=== PATIENT | female | born 1945 | race Caucasian/White ===

== ENCOUNTER → 2022-06-10 | Outpatient (CLI) | payer MEDICARE, BC ==
--- NOTE | 2022-06-13 08:48 | MM ---
Reason for Exam: Screening (asymptomatic). Last mammogram was performed 6 year(s) and 3 month(s) ago. Patient History: Menarche at age 13. First Full-Term at age 22. Postmenopausal. Excisional Biopsy on the Right side. Sister had breast cancer at or over age 50. Sister had breast cancer at or over age 50. Risk Values: Cassidy 5 year model risk: 8.3%. NCI Lifetime model risk: 15.2%. Prior Study Comparison: 07/16/2008 Bilateral Screening Mammogram, [facility]. 04/29/2011 Bilateral Screening Mammogram, [facility]. 03/04/2016 Bilateral Screening Mammogram, [facility]. Tissue Density: The breast tissue is heterogeneously dense. This may lower the sensitivity of mammography. Findings: Analyzed By CAD. There is no suspicious group of microcalcifications or new suspicious mass in either breast. Benign calcification within the left breast. No significant change from prior exam. Overall Assessment: Benign, BI-RAD 2 Management: Screening Mammogram of both breasts in 1 year. A clinical breast exam by your physician is recommended on an annual basis and results should be correlated with mammographic findings. Electronically signed and approved by: Brien Guzman D.O.
== END | disposition home or self-care (01) ==
LOC: RADMAMWWP 09:39
PROVIDERS: ATTEND Internal Medicine
DX: Z12.31 Encounter for screening mammogram for malignant neoplasm of breast (principal)
CPT/HCPCS: 77063; 77067

== ENCOUNTER → 2022-09-21 | Outpatient (CLI) | payer MEDICARE, BC ==
--- NOTE | 2022-09-21 13:23 | US ---
EXAMINATION TYPE: US kidneys/renal and bladder DATE OF EXAM: 09/21/2022 COMPARISON: CT 03/04/2016. CLINICAL HISTORY: N32.81 OVERACTIVE BLADDER. Overactive bladder EXAM MEASUREMENTS: Right Kidney: 9.3 x 4.4 x 3.7 cm Left Kidney: 10.6 x 4.2 x 4.8 cm Right Kidney: No hydronephrosis or masses seen Left Kidney: Echogenic area seen upper pole 1.1 x 1.0 x 1.1 cm, previously this area measured up to 8 mm in 2016. Bladder: Anechoic uterocele visualized left side of bladder. Bilateral Jets seen: Yes There is no evidence for hydronephrosis at this point in time. No nephrolithiasis is seen. No otoniel s are identified. The urinary bladder is anechoic. Bilateral ureteral jets are seen. 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 This could be further evaluated with CT urogram. Hyperechoic lesion within the kidney most consistent with angiomyolipoma as seen on prior CT and may be mildly increased in size from prior
== END | disposition home or self-care (01) ==
LOC: RADUSWWP 12:01
PROVIDERS: ATTEND Internal Medicine
DX: N28.9 Disorder of kidney and ureter, unspecified (principal); N32.81 Overactive bladder
CPT/HCPCS: 76770

== ENCOUNTER → 2022-10-04 | Outpatient (CLI) | payer MEDICARE, BC ==
[2022-10-04 15:46] LABS: African American GFR (CKD) >90 (>60 ml/min/1.73 sqM); Blood Urea Nitrogen 23 mg/dL (7-17); Non-African American GFR(CKD) 88 (>60 ml/min/1.73 sqM)
--- NOTE | 2022-10-04 19:41 | CT ---
EXAMINATION TYPE: CT abdomen pelvis wo/w con CT DLP: 1021.2 mGycm, Automated exposure control for dose reduction was used. DATE OF EXAM: 10/04/2022 5:21 PM COMPARISON: CLINICAL INDICATION:Female, 77 years old with history of N28.9 DISORDER OF KIDNEY AND URETER, UNSPECI FIED; Disorder of kidney and ureter. TECHNIQUE: Axial CT of the abdomen and pelvis. Sagittal and coronal reformats were created on a [employer] workstation. Contrast used:100cc mL of Isovue 300 with IV Contrast, Oral contrast used: with Oral Contrast FINDINGS: LOWER CHEST: Unremarkable ABDOMEN LIVER: Unremarkable GALLBLADDER AND BILE DUCTS: Unremarkable. PANCREAS: Unremarkable. SPLEEN: Unremarkable. ADRENAL GLANDS: Unremarkable. KIDNEYS AND URETERS: No evidence of hydronephrosis or renal calculus. No suspicious masses visualized . Delayed imaging demonstrates no urothelial lesion within the visualized opacified calyces. Left fat -containing millimeter lesion most consistent with angiomyolipoma. PELVIS BLADDER: Unremarkable REPRODUCTIVE: Unremarkable. ABDOMEN & PELVIS STOMACH AND BOWEL: No evidence of bowel obstruction. Colonic diverticulosis PERITONEUM/RETROPERITONEUM: No evidence of pneumoperitoneum or free fluid. . VASCULATURE: No evidence of aortic aneurysm. MUSCULOSKELETAL: No acute osseous abnormalities LYMPH NODES: No gross evidence for lymphadenopathy. SOFT TISSUE/ABDOMINAL WALL: Unremarkable IMPRESSION: 1. Limited exam for ureterocele secondary to use of renal mass protocol and not CT urogram. 2. No evidence of obstructive uropathy or renal calculus. 3. Left 9 mm renal angiomyolipoma. 4. Colonic diverticulosis.
== END | disposition home or self-care (01) ==
LOC: RADCTMAIN 14:50
PROVIDERS: ATTEND Internal Medicine
DX: D17.71 Benign lipomatous neoplasm of kidney (principal); N28.9 Disorder of kidney and ureter, unspecified; K57.30 Diverticulosis of large intestine without perforation or abscess without bleeding
CPT/HCPCS: 82565; 84520; 74178; 36415; Q9967

== ENCOUNTER 2022-12-18 02:15 | Emergency (ER) | payer MEDICARE, BC ==
[2022-12-18] MEDS ORDERED: KETOROLAC 15 MG/ML 1 ML VIAL IVP STA (02:37)
[2022-12-18] MEDS ORDERED: SODIUM CHLORIDE 0.9% 1,000 ML IV ONE (02:37)
--- NOTE | 2022-12-18 02:47 | ED ---
General Adult HPI - General Chief complaint: Abdominal Pain Stated complaint: Vomitting, Cramping Post Op Time Seen by Provider: 12/18/22 02:30 Source: patient Mode of arrival: wheelchair Limitations: no limitations - History of Present Illness Initial comments: This is a 77-year-old female with a past medical history including hypothyroidism presented to the emergency department for left-sided abdominal pain and cramping. It was reported the patient had a retrograde pyelogram and cystoscopy on and stated that she had some minor cramping at that time but had been improving. The patient stated that she has had intermittent left-sided abdominal cramping episodes throughout the day today but only lasting a few minutes. The patient then stated that the episode that is currently happening is been going on for approximately one hour. The patient reported this cramping was on the left side of her abdomen and not radiating. The pa tient also reported some mild nausea and vomiting secondary to the pain. The patient denied any other acute pain or complaints and denied any abnormalities in her bowel movements. The patient denied any fevers, chills. - Related Data Home Medications Medication Instructions Recorded Confirmed Levothyroxine Sodium [Synthroid] 75 mcg PO DAILY 10/22/15 10/22/15 Allergies Allergy/AdvReac Type Severity Reaction Status Date / Time ciprofloxacin Allergy Unknown Verified 12/18/22 02:21 Review of Systems ROS Statement: Those systems with pertinent positive or pertinent negative responses have been documented in the HPI. ROS Other: All systems not noted in ROS Statement are negative. Past Medical History Past Medical History: Thyroid Disorder History of Any Multi-Drug Resistant Organisms: None Reported Past Surgical History: No Surgical Hx Reported Additional Past Surgical History / Comment(s): bladder Past Psychological History: No Psychological Hx Reported Smoking Status: Never smoker Past Alcohol Use History: None Reported Past Drug Use History: None Reported General Exam Limitations: no limitations General appearance: alert, in distress (Secondary to abdominal cramping) Head exam: Present: atraumatic, normocephalic, normal inspection Eye exam: Present: normal appearance, PERRL Pupils: Present: normal accommodation ENT exam: Present: normal exam, normal oropharynx, mucous membranes moist Neck exam: Present: normal inspection, full ROM Respiratory exam: Present: normal lung sounds bilaterally Cardiovascular Exam: Present: regular rate, normal rhythm, normal heart sounds GI/Abdominal exam: Present: soft, tenderness (TTP over the left lower abdominal quadrant), normal bowel sounds Extremities exam: Present: normal inspection, full ROM Back exam: Present: normal inspection, full ROM Neurological exam: Present: alert, oriented X3, CN II-XII intact Psychiatric exam: Present: normal affect, normal mood Skin exam: Present: warm, dry Course Vital Signs 12/18/22 12/18/22 12/18/22 02:22 02:49 04:43 Temperature 97.9 F Pulse Rate 69 57 L 53 L Respiratory 36 H 20 20 Rate Blood Pressure 171/95 175/80 145/78 O2 Sat by Pulse 96 97 97 Oximetry 12/18/22 06:16 Temperature 98.4 F Pulse Rate 63 Respiratory 16 Rate Blood Pressure 130/78 O2 Sat by Pulse 97 Oximetry Medical Decision Making - Medical Decision Making Was pt. sent in by a medical professional or institution (Dr. PA, VACUUM CLEANER ASSEMBLER, urgent care, hospital, or fdc...) When possible be specific @ -No Did you speak to anyone other than the patient for history (EMS, parent, family, police, friend...)? What history was obtained from this source @ -No Did you review nursing and triage notes (agree or disagree)? Why? @ -I reviewed and agree with nursing and triage notes Were old charts reviewed (outside hosp., previous admission, EMS record, old EKG, old radiological studies, urgent care reports/EKG's, fdc records)? Report findings @ -No old charts were reviewed Differential Diagnosis (chest pain, altered mental status, abdominal pain women, abdominal pain men, vaginal bleeding, weakness, fever, dyspnea, syncope, headache, dizziness, GI bleed, back pain, seizure, CVA, palpatations, mental health)? @ -Postop complication, kidney stone, UTI EKG interpreted by me (3pts min.). @ -None X-rays interpreted by me (1pt min.). @ -None done CT interpreted by me (1pt min.). @ -CT abdomen and pelvis with contrast was obtained and was interpreted by myself showing mild to moderate left-sided hydronephrosis with at least delayed excretion. There was present of hyperdense material near the UVJ that could flex blood clot versus mass versus neoplasm. It was recommended to correlate with findings during cystoscopy advised. U/S interpreted by me (1pt. min.). @ -None done What testing was considered but not performed or refused? (CT, X-rays, U/S, labs)? Why? @ -None What meds were considered but not given or refused? Why? @ -None Did you discuss the management of the patient with other professionals (professionals i.e. , PA, VACUUM CLEANER ASSEMBLER, lab, RT, psych nurse, social services director, ornamental iron worker helper, teacher, information officer, case specialist)? Give summary @ -Yes, Dr. Trevizo was contacted regarding the CT findings. He recommended no further surgical intervention or need for urology follow-up in the hospital but did recommend symptomatic control. He advised to follow-up in the office on Monday morning. Was smoking cessation discussed for >3mins.? @ -No Was critical care preformed (if so, how long)? @ -No Were there social determinants of health that impacted care today? How? (Ashley elessness, low income, unemployed, alcoholism, drug addiction, transportation, low edu. Level, literacy, decrease access to med. care, penitentiary, rehab)? @ -No Was there de-escalation of care discussed even if they declined (Discuss DNR or withdrawal of care, Hospice)? DNR status @ -No What co-morbidities impacted this encounter? (DM, HTN, Smoking, COPD, CAD, Cancer, CVA, ARF, Chemo, Hep., AIDS, mental health diagnosis, sleep apnea, morbid obesity)? @ -None Was patient admitted / discharged? Hospital course, mention meds given and route, prescriptions, significant lab abnormalities, going to OR and other pertinent info. @ -The patient was seen and evaluated emergency department. Physical exam, the patient was initially having significant pain and discomfort in the left flank and left lower abdomen and had nausea consistent with this. Vital signs admission were stable. Due to the findings, laboratory workup and imaging was obtained. Urinalysis did show blood and CT findings were above. The urologist on-call, Dr. Trevizo was contacted regarding the findings and was told of them. He recommended no further intervention by urology at this time but did state that the patient would need symptomatically control. The patient received 30 mg of Toradol and on reevaluation in the emergency department, had complete resolution of her pain. The patient was able to tolerate by mouth successfully in the emergency department was stable for discharge home. The patient had been previously prescribed Toradol after the procedure but had not taken them. The patient was advised to take Toradol as prescribed for continued cramping and to follow-up with her urologist, Dr. Alex, first thing in the morning on Monday. The patient was also advised report back to the emergency department if her pain became unbearable and unresponsive to the medications at home. The patient was agreeable to this and all her questions were answered. The patient was discharged home in stable condition. Undiagnosed new problem with uncertain prognosis? @ -No Drug Therapy requiring intensive monitoring for toxicity (Heparin, Nitro, Insulin, Cardizem)? @ -No Were any procedures done? @ -No Diagnosis/symptom? @ -Left flank pain, secondary to blood clot versus mass versus neoplasm at the left UVJ Acute, or Chronic, or Acute on Chronic? @ -Acute Uncomplicated (without systemic symptoms) or Complicated (systemic symptoms)? @ -Uncomplicated Side effects of treatment? @ -No Exacerbation, Progression, or Severe Exacerbation? @ -No Poses a threat to life or bodily function? How? (Chest pain, [place], [place], pneumonia, PE, COPD, DKA, ARF, appy, cholecystitis, CVA, Diverticulitis, Homicidal, Suicidal, threat to staff... and all critical care pts) @ -No - Lab Data Result diagrams: 12/18/22 02:40 12/18/22 02:40 Lab Results 12/18/22 12/18/22 12/18/22 Range/Units 02:40 02:40 04:43 WBC 7.5 (3.8-10.6) k/uL RBC 4.19 (3.80-5.40) m/uL Hgb 13.1 (11.4-16.0) gm/dL Hct 38.1 (34.0-46.0) % MCV 91.1 (80.0-100.0) fL MCH 31.3 (25.0-35.0) pg MCHC 34.3 (31.0-37.0) g/dL RDW 12.1 (11.5-15.5) % Plt Count 262 (150-450) k/uL MPV 7.0 Neutrophils % 58 % Lymphocytes % 32 % Monocytes % 7 % Eosinophils % 1 % Basophils % 1 % Neutrophils # 4.4 (1.3-7.7) k/uL Lymphocytes # 2.4 (1.0-4.8) k/uL Monocytes # 0.5 (0-1.0) k/uL Eosinophils # 0.1 (0-0.7) k/uL Basophils # 0.0 (0-0.2) k/uL Sodium 142 (137-145) mmol/L Potassium 4.0 (3.5-5.1) mmol/L Chloride 108 H (98-107) mmol/L Carbon Dioxide 26 (22-30) mmol/L Anion Gap 8 mmol/L BUN 13 (7-17) mg/dL Creatinine 0.68 (0.52-1.04) mg/dL Est GFR (CKD-EPI)AfAm >90 (>60 ml/min/1.73 sqM) Est GFR (CKD-EPI)NonAf 85 (>60 ml/min/1.73 sqM) Glucose 112 H (74-99) mg/dL Calcium 9.9 (8.4-10.2) mg/dL Magnesium 2.0 (1.6-2.3) mg/dL Total Bilirubin 0.8 (0.2-1.3) mg/dL AST 25 (14-36) U/L ALT 22 (4-34) U/L Alkaline Phosphatase 76 (38-126) U/L Total Protein 7.5 (6.3-8.2) g/dL Albumin 4.7 (3.5-5.0) g/dL Lipase 308 H (23-300) U/L Urine Color Light Yellow Urine Appearance Clear (Clear) Urine pH 7.5 (5.0-8.0) Ur Specific [place] 1.039 H (1.001-1.035) Urine Protein Negative (Negative) Urine Glucose (UA) Negative (Negative) Urine Ketones Trace H (Negative) Urine Blood Large H (Negative) Urine Nitrite Negative (Negative) Urine Bilirubin Negative (Negative) Urine Urobilinogen <2.0 (<2.0) mg/dL Ur Leukocyte Esterase Negative (Negative) Urine RBC >182 H (0-5) /hpf Urine WBC 2 (0-5) /hpf Ur Squamous Epith Cells <1 (0-4) /hpf Urine Mucus Rare H (None) /hpf Disposition Clinical Impression: Flank pain, Hematuria Disposition: HOME SELF-CARE Condition: Stable Instructions (If sedation given, give patient instructions): Flank Pain (ED) Additional Instructions: Please continue to take the Toradol as previously prescribed. Is patient prescribed a controlled substance at d/c from ED?: No Referrals: Marcella Finley MD [Primary Care Provider] - 1-2 days Maurice Alex MD [Family Provider] - 12/19/22 Time of Disposition: 05:50
[2022-12-18 02:58] LABS: Basophils % (A) 1 %; Eosinophils # (A) 0.1 k/uL (0-0.7); Eosinophils % (A) 1 %; HCT 38.1 % (34.0-46.0); HGB 13.1 gm/dL (11.4-16.0); Lymphocytes # (A) 2.4 k/uL (1.0-4.8); Lymphocytes % (A) 32 %; MCH 31.3 pg (25.0-35.0); MCHC 34.3 g/dL (31.0-37.0); MCV 91.1 fL (80.0-100.0); Monocytes # (A) 0.5 k/uL (0-1.0); Monocytes % (A) 7 %; Neutrophils # (A) 4.4 k/uL (1.3-7.7); Neutrophils % (A) 58 %; Platelet Count 262 k/uL (150-450); RBC 4.19 m/uL (3.80-5.40); RDW 12.1 % (11.5-15.5); WBC 7.5 k/uL (3.8-10.6)
[2022-12-18 03:07] LABS: ALT 22 U/L (4-34); AST 25 U/L (14-36); African American GFR (CKD) >90 (>60 ml/min/1.73 sqM); Albumin 4.7 g/dL (3.5-5.0); Alkaline Phosphatase 76 U/L (38-126); Anion Gap 8 mmol/L; Blood Urea Nitrogen 13 mg/dL (7-17); Calcium 9.9 mg/dL (8.4-10.2); Carbon Dioxide 26 mmol/L (22-30); Chloride 108 mmol/L (98-107); Glucose 112 mg/dL (74-99); Lipase 308 U/L (23-300); Non-African American GFR(CKD) 85 (>60 ml/min/1.73 sqM); Sodium 142 mmol/L (137-145); Total Bilirubin 0.8 mg/dL (0.2-1.3); Total Protein 7.5 g/dL (6.3-8.2)
[2022-12-18 05:05] LABS: Appearance,Urine Clear (Clear); Bilirubin,Urine Negative (Negative); Blood,Urine Large (Negative); Color,Urine Light Yellow; Glucose,Urine (UA) Negative (Negative); Ketones,Urine Trace (Negative); Leukocyte Esterase,Urine Negative (Negative); Mucus,Urine Rare /hpf; Nitrite,Urine Negative (Negative); PH, Urine 7.5 (5.0-8.0); Protein,Urine Negative (Negative); RBC,Urine >182 /hpf (0-5); Specific Gravity,Urine 1.039 (1.001-1.035); Squamous Epithelial Cell,Urine <1 /hpf (0-4); Urobilinogen,Urine <2.0 mg/dL (<2.0); WBC,Urine 2 /hpf (0-5)
--- NOTE | 2022-12-18 05:43 | CT ---
EXAMINATION TYPE: CT abdomen pelvis w con DATE OF EXAM: 12/18/2022 HISTORY: Acute left lower abdominal pain. Recent cystoscopy and retrograde urogram with increasing pa in and nausea and vomiting CT DLP: 824mGycm Automated Exposure Control for Dose Reduction was Utilized. CONTRAST: CT scan of the abdomen and pelvis is performed without oral and with IV Contrast, patient injected wi th 100 mL of Isovue 300. COMPARISON: Prior CT October 04, 2022 FINDINGS: LUNG BASES: Mild anterior bibasilar linear scarring is redemonstrated. LIVER/GB: No significant abnormality is appreciated. PANCREAS: No significant abnormality is seen. SPLEEN: No significant abnormality is seen. ADRENALS: No significant abnormality is seen. KIDNEYS: There is symmetric cortical impression linear uptake but delayed or nonvisualized excretion in the left kidney. There is excretion without hydronephrosis in the right kidney. There is mild to m oderate left-sided hydronephrosis with hyperdense material in the distal left ureter near the UVJ. No definite nephrolithiasis bilaterally. Focus of air non-dependently in the bladder. This is presumed product of recent cystoscopy. A few subcentimeter low dense lesions throughout the left kidney are to o small to further characterize but presumed benign and were present on prior. BOWEL: Diverticula in the sigmoid colon redemonstrated. No CT evidence for acute diverticulitis. Smal l-sized hiatal hernia redemonstrated. No suspicious small or large bowel dilatation. UTERUS/ADNEXA: Anteverted uterus with small calcified fibroids. LYMPH NODES: No greater than 1cm abdominal or pelvic lymph nodes are appreciated. OSSEOUS STRUCTURES: Slight scoliotic curvature redemonstrated. Multilevel facet arthropathy in the alem mbar spine redemonstrated. Moderate axial joint space loss both hips. OTHER: No significant additional abnormality is seen. IMPRESSION: [id number]-fl-rdohraef left-sided hydronephrosis with at least delayed excretion. Presence of h yperdense material near UVJ could reflect blood clot versus mass/neoplasm. Correlation with findings during cystoscopy is advised.
[2022-12-18 06:18] VITALS: BP 130/78; PULSE 63; RESP 16; TEMP 98.4
== END 2022-12-18 06:19 | disposition home or self-care (01) ==
LOC: EC 02:15
DX: R10.9 Unspecified abdominal pain (principal); R31.9 Hematuria, unspecified; E07.9 Disorder of thyroid, unspecified; Z79.890 Hormone replacement therapy; Z88.8 Allergy status to other drugs, medicaments and biological substances
CPT/HCPCS: 36415; 80053; 83690; 83735; 85025; 81001; 74177; 99284; 96374; 96361 ×2; J1885; Q9967

== ENCOUNTER 2023-02-03 11:02 | Emergency (ER) | payer MEDICARE, BC ==
[2023-02-03 11:14] VITALS: TEMP 98.6
[2023-02-03] MEDS ORDERED: SODIUM CHLORIDE 0.9% 1,000 ML IV STA (12:14)
[2023-02-03] MEDS ORDERED: ONDANSETRON 4 MG/2 ML VIAL IVP STA (12:14)
--- NOTE | 2023-02-03 13:30 | US ---
EXAMINATION TYPE: US gallbladder DATE OF EXAM: 02/03/2023 COMPARISON: CT abdomen and pelvis December 18, 2022 CLINICAL INDICATION: Female, 77 years old with history of abd pain; jaundice TECHNIQUE: Multiple sonographic images of the right upper quadrant are obtained. 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 No aneurysm in visualized abdominal aorta. IVC is s een near the hepatic dome. No concerning intrahepatic mass or adjacent ascites. Gallbladder not compl etely anechoic. Common bile duct now moderately dilated IMPRESSION: Moderate extrahepatic biliary dilatation new from recent CT. Gallbladder has distended ma rgins. Consider CBD obstruction. Further workup and follow-up advised.
[2023-02-03 14:55] LABS: Basophils # (A) 0.1 k/uL (0-0.2); Basophils % (A) 1 %; Eosinophils # (A) 0.1 k/uL (0-0.7); Eosinophils % (A) 1 %; HCT 41.6 % (34.0-46.0); HGB 13.7 gm/dL (11.4-16.0); Lymphocytes # (A) 1.5 k/uL (1.0-4.8); Lymphocytes % (A) 22 %; MCH 31.5 pg (25.0-35.0); MCHC 32.8 g/dL (31.0-37.0); Mean Platelet Volume 9.1; Monocytes # (A) 0.5 k/uL (0-1.0); Monocytes % (A) 8 %; Neutrophils # (A) 4.4 k/uL (1.3-7.7); Neutrophils % (A) 66 %; Platelet Count 289 k/uL (150-450); RBC 4.34 m/uL (3.80-5.40); RDW 13.1 % (11.5-15.5); WBC 6.7 k/uL (3.8-10.6)
--- NOTE | 2023-02-03 14:57 | ED ---
General Adult HPI - General Source: patient, RN notes reviewed, old records reviewed Mode of arrival: ambulatory Limitations: no limitations <Marcos Mack - Last Filed: 02/03/23 14:52> <Nito Tabares - Last Filed: 02/03/23 17:40> - General Chief complaint: Recheck/Abnormal Lab/Rx Stated complaint: Jaundice Time Seen by Provider: 02/03/23 11:59 - History of Present Illness Initial comments: Patient is a 77-year-old female with past medical history remarkable for hypothyroidism on Synthroid who presents emergency Department complaining of yellowing of skin as well as epigastric abdominal discomfort. For the last month she has noticed more yellow in her urine. Over the last few weeks she has also noticed epigastric abdominal discomfort. Over the last few days she has noticed worsening yellow skin and noticed yellowing of her eyes. She presented to her PCP who sent her to the emergency department to evaluate for liver failure. Patient does have a family history of pancreatic cancer. Denies any nausea or vomiting. Denies diarrhea. Does endorse approximately 6 pound weight loss in last month. Denies any chest pain or shortness of breath. Denies any abdominal surgeries. Has no other acute complaints at this time. Presents for further evaluation at this time. (Marcos Mack) - Related Data Home Medications Medication Instructions Recorded Confirmed Levothyroxine Sodium [Synthroid] 75 mcg PO MOTUWETHFRSA 10/22/15 02/03/23 Allergies Allergy/AdvReac Type Severity Reaction Status Date / Time ciprofloxacin Allergy Unknown Verified 02/03/23 14:00 Review of Systems ROS Other: All systems not noted in ROS Statement are negative. <Marcos Mack - Last Filed: 02/03/23 14:52> ROS Other: All systems not noted in ROS Statement are negative. <Nito Tabares - Last Filed: 02/03/23 17:40> ROS Statement: Those systems with pertinent positive or pertinent negative responses have been documented in the HPI. Review of Systems: CONST: Denies fever EYES: Denies blurry vision ENT: Denies nasal congestion C/V: Denies Chest pain RESP: Denies shortness of breath GI: Endorses epigastric abdominal discomfort : Denies dysuria SKIN: Endorses jaundice MSK: Denies joint pain. NEURO: Denies headache (Marcos Mack) Past Medical History Past Medical History: Thyroid Disorder History of Any Multi-Drug Resistant Organisms: None Reported Past Surgical History: No Surgical Hx Reported Additional Past Surgical History / Comment(s): bladder Past Psychological History: No Psychological Hx Reported Smoking Status: Never smoker Past Alcohol Use History: None Reported Past Drug Use History: None Reported <Marcos Mack - Last Filed: 02/03/23 14:52> General Exam Limitations: no limitations <FrederickMarcos - Last Filed: 02/03/23 14:52> - General Exam Comments Initial Comments: General: Appears in no acute distress. HEAD: Normal with no signs of head trauma. EYES: PERRLA, EOMI, conjunctiva normal, no discharge. Scleral icterus. Pupils 3 mm and equal bilaterally. ENT: Hearing grossly intact, normal oropharynx. RESPIRATORY: Clear breath sounds bilaterally. No wheezes, rales, or rhonchi. C/V: Regular rate and rhythm. S1 and S2 auscultated, no edema, peripheral pulses 2+ and intact throughout ABD: Abdomen is soft, nondistended. Minimally tender to palpation in the epigastric region. No obvious masses palpated. No guarding, peritoneal signs, rebound tenderness. EXT: Normal range of motion, no obvious deformity SKIN: Patient is jaundiced. NEURO: Alert and oriented 4. (Marcos Mack) Course Vital Signs 02/03/23 11:11 Temperature 98.6 F Pulse Rate 56 L Respiratory 20 Rate Blood Pressure 182/74 O2 Sat by Pulse 100 Oximetry EKG Findings - EKG Results: EKG: interpreted by ERMD (EKG interpreted by fl sinus bradycardia 58 FL interval 120 QRS duration 74 QT since QTC 449/424 possible left atrial enlargement no acute ST-T wave changes) <Nito Tabares - Last Filed: 02/03/23 17:40> Medical Decision Making <Marcos Mack - Last Filed: 02/03/23 14:52> - Lab Data Result diagrams: 02/03/23 12:38 02/03/23 12:38 <Nito Tabares - Last Filed: 02/03/23 17:40> - Medical Decision Making Was pt. sent in by a medical professional or institution (, PA, [facility], urgent care, hospital, or alf...) When possible be specific @ -Sent by her PCP Dr. Finley for workup for liver failure Did you speak to anyone other than the patient for history (EMS, parent, family, police, friend...)? What history was obtained from this source @ -No Did you review nursing and triage notes (agree or disagree)? Why? @ -I reviewed and agree with nursing and triage notes Were old charts reviewed (outside hosp., previous admission, EMS record, old EKG, old radiological studies, urgent care reports/EKG's, alf records)? Report findings @ -No old charts were reviewed Differential Diagnosis (chest pain, altered mental status, abdominal pain women, abdominal pain men, vaginal bleeding, weakness, fever, dyspnea, syncope, headache, dizziness, GI bleed, back pain, seizure, CVA, palpatations, mental health, musculoskeletal)? @ -Differential Abdominal Pain Women: Appendicitis, Cholecystitis, diverticulosis, ischemic bowel, pancreatitis, hepatitis, UTI, gastroenteritis, AAA, incarcerated hernia, bowel obstruction, constipation, inflammatory bowel, hepatitis, peptic ulcer disease, splenic infarction, perforated viscus, vulvitis, ovarian torsion, PID, kidney stone, placenta abruption, this is not meant to be an all-inclusive list EKG interpreted by me (3pts min.). @ -Pending X-rays interpreted by me (1pt min.). @ -None done CT interpreted by me (1pt min.). @ -Pending U/S interpreted by me (1pt. min.). @ -Interpreted by radiology as as revealing extrahepatic biliary dilation which is new from recent CT as well as a distended gallbladder possible CBD obstruction. What testing was considered but not performed or refused? (CT, X-rays, U/S, labs)? Why? @ -None What meds were considered but not given or refused? Why? @ -I offered analgesia medications which were declined. Did you discuss the management of the patient with other professionals (professionals i.e. , PA, [facility], lab, RT, psych nurse, social service agency director, electrocardiographic technician, teacher, fire control officer, mattress spring encaser)? Give summary @ -Discussed with the ER physician Dr. Tabares who is taking over care of the patient as it at the end of my shift and he was in agreement with the plan. Was smoking cessation discussed for >3mins.? @ -No Was critical care preformed (if so, how long)? @ -No Were there social determinants of health that impacted care today? How? (Homelessness, low income, unemployed, alcoholism, drug addiction, transportation, low edu. Level, literacy, decrease access to med. care, senior living, rehab)? @ -No Was there de-escalation of care discussed even if they declined (Discuss DNR or withdrawal of care, Hospice)? DNR status @ -No What co-morbidities impacted this encounter? (DM, HTN, Smoking, COPD, CAD, Cancer, CVA, ARF, Chemo, Hep., AIDS, mental health diagnosis, sleep apnea, morbid obesity)? @ -None Was patient admitted / discharged? Hospital course, mention meds given and route, prescriptions, significant lab abnormalities, going to OR and other pertinent info. @ -Based on the patient's presentation and physical exam, I'm concerned for hepatobiliary pathology for current symptoms. She is having some painless jaundice. Mild epigastric discomfort. Cannot rule out pancreatic cancer or other pathology such as stone at this time. We will obtain a CT abdomen and pelvis, gallbladder ultrasound, as well as abdominal laboratory studies. She'll be symptomatically treated with IV Zofran and fluids. She was in agreement this plan. Vital signs within acceptable limits. This seems to be a progressive process over the last few weeks. The gallbladder ultrasound does show findings concerning for gallbladder distention and possible CBD distention. Remainder the workup is pending at this time as there was a delay in obtaining in sending labs as well as waiting for laboratory results prior to CT imaging. Patient signed out to the [facility] emergency Department physician Dr. Tabares for further management. Undiagnosed new problem with uncertain prognosis? @ -No Drug Therapy requiring intensive monitoring for toxicity (Heparin, Nitro, Insulin, Cardizem)? @ -No Were any procedures done? @ -No (Marcos Mack) I did discuss the findings with the patient and family members. Patient does demonstrate evidence of jaundice with common bile duct obstruction at the pancreatic head level there is dilated common bile duct of 1.7 cm as well as a dilated gallbladder 9.5 cm. Patient did request [facility] for transfer I did discuss case with Dr. Benitez from the GI service as well as Dr. Valenzuela the emergency physician. Patient be transferred by private vehicle with the imaging on CT as well as labs and paperwork from this visit. (Nito Tbaares) - Lab Data Lab Results 0602/03/23 02/03/23 Range/Units 12:38 12:38 12:38 WBC 6.7 (3.8-10.6) k/uL RBC 4.34 (3.80-5.40) m/uL Hgb 13.7 (11.4-16.0) gm/dL Hct 41.6 (34.0-46.0) % MCV 96.0 (80.0-100.0) fL MCH 31.5 (25.0-35.0) pg MCHC 32.8 (31.0-37.0) g/dL RDW 13.1 (11.5-15.5) % Plt Count 289 (150-450) k/uL MPV 9.1 Neutrophils % 66 % Lymphocytes % 22 % Monocytes % 8 % Eosinophils % 1 % Basophils % 1 % Neutrophils # 4.4 (1.3-7.7) k/uL Lymphocytes # 1.5 (1.0-4.8) k/uL Monocytes # 0.5 (0-1.0) k/uL Eosinophils # 0.1 (0-0.7) k/uL Basophils # 0.1 (0-0.2) k/uL PT 9.8 (9.0-12.0) sec INR 0.9 (<1.2) APTT 24.9 (22.0-30.0) sec Sodium (137-145) mmol/L Potassium (3.5-5.1) mmol/L Chloride (98-107) mmol/L Carbon Dioxide (22-30) mmol/L Anion Gap mmol/L BUN (7-17) mg/dL Creatinine (0.52-1.04) mg/dL Est GFR (CKD-EPI)AfAm (>60 ml/min/1.73 sqM) Est GFR (CKD-EPI)NonAf (>60 ml/min/1.73 sqM) Glucose (74-99) mg/dL Plasma Lactic Acid Hernandez (0.7-2.0) mmol/L Calcium (8.4-10.2) mg/dL Total Bilirubin (0.2-1.3) mg/dL Conjugated Bilirubin (0.0-0.3) mg/dL Unconjugated Bilirubin (0.0-1.1) mg/dL Delta Bilirubin (0.0-0.2) mg/dL AST (14-36) U/L ALT (4-34) U/L Alkaline Phosphatase (38-126) U/L Ammonia (<30) umol/L Total Protein (6.3-8.2) g/dL Albumin (3.5-5.0) g/dL Amylase (30-110) U/L Lipase (23-300) U/L Urine Color Yellow Urine Appearance Clear (Clear) Urine pH 5.5 (5.0-8.0) Ur Specific [place] 1.009 (1.001-1.035) Urine Protein Negative (Negative) Urine Glucose (UA) Negative (Negative) Urine Ketones Negative (Negative) Urine Blood Negative (Negative) Urine Nitrite Negative (Negative) Urine Bilirubin 1+ H (Negative) Urine Urobilinogen <2.0 (<2.0) mg/dL Ur Leukocyte Esterase Negative (Negative) 02/03/23 02/03/23 02/03/23 Range/Units 12:38 12:38 16:05 WBC (3.8-10.6) k/uL RBC (3.80-5.40) m/uL Hgb (11.4-16.0) gm/dL Hct (34.0-46.0) % MCV (80.0-100.0) fL MCH (25.0-35.0) pg MCHC (31.0-37.0) g/dL RDW (11.5-15.5) % Plt Count (150-450) k/uL MPV Neutrophils % % Lymphocytes % % Monocytes % % Eosinophils % % Basophils % % Neutrophils # (1.3-7.7) k/uL Lymphocytes # (1.0-4.8) k/uL Monocytes # (0-1.0) k/uL Eosinophils # (0-0.7) k/uL Basophils # (0-0.2) k/uL PT (9.0-12.0) sec INR (<1.2) APTT (22.0-30.0) sec Sodium 142 (137-145) mmol/L Potassium 4.0 (3.5-5.1) mmol/L Chloride 101 (98-107) mmol/L Carbon Dioxide 28 (22-30) mmol/L Anion Gap 13 mmol/L BUN 16 (7-17) mg/dL Creatinine 0.56 (0.52-1.04) mg/dL Est GFR (CKD-EPI)AfAm >90 (>60 ml/min/1.73 sqM) Est GFR (CKD-EPI)NonAf >90 (>60 ml/min/1.73 sqM) Glucose 100 H (74-99) mg/dL Plasma Lactic Acid Hernandez 0.9 (0.7-2.0) mmol/L Calcium 9.8 (8.4-10.2) mg/dL Total Bilirubin 10.6 H (0.2-1.3) mg/dL Conjugated Bilirubin 5.2 H (0.0-0.3) mg/dL Unconjugated Bilirubin 2.3 H (0.0-1.1) mg/dL Delta Bilirubin 3.1 H (0.0-0.2) mg/dL AST 91 H (14-36) U/L ALT 127 H (4-34) U/L Alkaline Phosphatase 295 H (38-126) U/L Ammonia <9 (<30) umol/L Total Protein 8.8 H (6.3-8.2) g/dL Albumin 5.1 H (3.5-5.0) g/dL Amylase 65 (30-110) U/L Lipase 198 (23-300) U/L Urine Color Urine Appearance (Clear) Urine pH (5.0-8.0) Ur Specific [place] (1.001-1.035) Urine Protein (Negative) Urine Glucose (UA) (Negative) Urine Ketones (Negative) Urine Blood (Negative) Urine Nitrite (Negative) Urine Bilirubin (Negative) Urine Urobilinogen (<2.0) mg/dL Ur Leukocyte Esterase (Negative) - Radiology Data Interpreted by me: I did interpret the imaging CAT scan showed evidence of dilated gallbladder 9.5 cm at the greatest dimension, bile duct was 1.7 cm it was an abrupt cutoff of the common bile duct within the pancreatic head is unknown whether the calculus versus pancreatic mass. (Nito Tabares) Disposition <Marcos Mack - Last Filed: 02/03/23 14:52> Is patient prescribed a controlled substance at d/c from ED?: No Decision Date: 02/03/23 Decision Time: 17:40 - Out of Hospital Transfer - Req. Specs Out of Hospital Transfer - Requested Specifics: Other Emergency Center <Nito Tabares - Last Filed: 02/03/23 17:40> Clinical Impression: Jaundice, Common bile duct dilatation, Gallbladder dilatation, Elevated liver enzymes Disposition: OTHER INSTITUTION NOT DEFINED Condition: Stable Additional Instructions: Go directly to the emergency department [facility] in [place], [place]. Dr. Benitez with the accepting GI doctor and Dr. Valenzuela was accepting emergency department physician. Referrals: Marcella Finley MD [Primary Care Provider] - 1-2 days
[2023-02-03 14:59] LABS: Appearance,Urine Clear (Clear); Bilirubin,Urine 1+ (Negative); Blood,Urine Negative (Negative); Color,Urine Yellow; Glucose,Urine (UA) Negative (Negative); Ketones,Urine Negative (Negative); Leukocyte Esterase,Urine Negative (Negative); Nitrite,Urine Negative (Negative); PH, Urine 5.5 (5.0-8.0); Protein,Urine Negative (Negative); Specific Gravity,Urine 1.009 (1.001-1.035); Urobilinogen,Urine <2.0 mg/dL (<2.0)
[2023-02-03 15:00] LABS: INR 0.9 (<1.2); Partial Thromboplastin Time 24.9 sec (22.0-30.0); Prothrombin Time 9.8 sec (9.0-12.0)
[2023-02-03 15:01] LABS: ALT 127 U/L (4-34); AST 91 U/L (14-36); African American GFR (CKD) >90 (>60 ml/min/1.73 sqM); Albumin 5.1 g/dL (3.5-5.0); Alkaline Phosphatase 295 U/L (38-126); Amylase 65 U/L (30-110); Anion Gap 13 mmol/L; Bilirubin, Conjugated 5.2 mg/dL (0.0-0.3); Bilirubin, Delta 3.1 mg/dL (0.0-0.2); Bilirubin,Unconjugated 2.3 mg/dL (0.0-1.1); Blood Urea Nitrogen 16 mg/dL (7-17); Calcium 9.8 mg/dL (8.4-10.2); Carbon Dioxide 28 mmol/L (22-30); Chloride 101 mmol/L (98-107); Glucose 100 mg/dL (74-99); Lipase 198 U/L (23-300); Non-African American GFR(CKD) >90 (>60 ml/min/1.73 sqM); Sodium 142 mmol/L (137-145); Total Bilirubin 10.6 mg/dL (0.2-1.3); Total Protein 8.8 g/dL (6.3-8.2)
--- NOTE | 2023-02-03 16:26 | CT ---
EXAMINATION TYPE: CT abdomen pelvis w con DATE OF EXAM: 02/03/2023 COMPARISON: 12/18/2022 HISTORY: Jaundice CT DLP: 639.8 mGycm CONTRAST: CT scan of the abdomen and pelvis is performed without Oral Contrast and with IV Contrast, patient in jected with 90 mL of Isovue 300. FINDINGS: LUNG BASES-: No visible nodule. No infiltrate. LIVER/GB: The gallbladder is hydropic measuring 9.5 cm in greatest dimension. There is evidence of interval intra and extrahepatic biliary ductal dilatation. Common bile duct currently measures 1.7 cm in greatest dimension. There appears to be abrupt termination of the common bile duct within the garcia creatic head. Obstructing calculus or mass is not excluded. No space occupying hepatic lesion. Bilia ry tree is of normal caliber. PANCREAS: No inflammation. No distinct mass. SPLEEN: No splenic enlargement. No lesion seen. ADRENALS: No nodule. No thickening. KIDNEYS/BLADDER: No hydronephrosis. No nephrolithiasis. No distinct renal mass. Urinary bladder g rossly unremarkable. BOWEL: Normal appendix. Normal bowel caliber. No inflammation. GENITAL ORGANS: No gross abnormality. LYMPH NODES: No greater than 1cm abdominal or pelvic lymph nodes are appreciated. AORTA: No significant abnormality. OSSEOUS STRUCTURES: No significant abnormality is seen. OTHER: No significant additional abnormality is seen. IMPRESSION: 1. The gallbladder is hydropic measuring 9.5 cm in greatest dimension. There is evidence of interval intra and extrahepatic biliary ductal dilatation. Common bile duct currently measures 1.7 cm in great est dimension. There appears to be abrupt termination of the common bile duct within the pancreatic h ead. Obstructing calculus or mass is not excluded.
[2023-02-03 17:38] VITALS: PULSE 73; RESP 10
[2023-02-03 17:47] VITALS: BP 172/78
== END 2023-02-03 17:56 | disposition other institution (70) ==
LOC: EC 11:02
DX: R17 Unspecified jaundice (principal); K83.8 Other specified diseases of biliary tract; K82.8 Other specified diseases of gallbladder; R74.01 Elevation of levels of liver transaminase levels; E07.9 Disorder of thyroid, unspecified; Z79.890 Hormone replacement therapy; Z88.6 Allergy status to analgesic agent
CPT/HCPCS: 36415; 93005; 80053; 82140; 82150; 82248; 83605; 83690; 85025; 85610; 85730; 81003; 76705; 74177; 99285; 96374; 96361 ×5; J2405; Q9967